=== PATIENT | male | born 1955 | race Caucasian/White ===

== ENCOUNTER 2017-05-22 13:13 | Inpatient (IN) | payer OTHER ==
[~2017-05-22] VITALS: Ht 165.1 cm; Wt 72.6 kg
[2017-05-22] MEDS ORDERED: IV NORMAL SALINE 500 ML BAG IV ONE (13:30)
[2017-05-22 14:00] LABS: CREATININE 6.4 mg/dL (0.6-1.3)
[2017-05-22 14:02] LABS: BASOPHILS # (AUTO) 0.1 K/uL (0.0-8.0); BASOPHILS % (AUTO) 0.6 % (0.0-2.0); EOSINOPHILS # (AUTO) 0.6 K/uL (0.0-0.7); EOSINOPHILS % (AUTO) 5.3 % (0.0-7.0); HEMATOCRIT 23.6 % (36.7-47.1); LYMPHOCYTES # (AUTO) 2.2 K/uL (20.0-40.0); LYMPHOCYTES % (AUTO) 20.4 % (20.5-51.5); MEAN CORPUSCULAR HEMOGLOBIN 30.3 uug (23.8-33.4); MEAN CORPUSCULAR HGB CONC 34 g/dL (32.5-36.3); MEAN CORPUSCULAR VOLUME 89.3 fL (73.0-96.2); MONOCYTES # (AUTO) 1.1 K/uL (2.0-10.0); NEUTROPHILS % (AUTO) 63.7 % (38.5-71.5); PLATELET COUNT (AUTO) 302 K/uL (152-348); RED BLOOD CELL COUNT(AUTO) 2.64 MIL/uL (4.06-5.63); WHITE BLOOD COUNT (AUTO) 10.9 K/uL (3.6-10.2)
[2017-05-22 14:17] LABS: BILIRUBIN,DIRECT 0.1 mg/dL (0.0-0.2); BILIRUBIN,TOTAL 0.2 mg/dL (0.2-1.0); TOTAL PROTEIN, SERUM 7.5 g/dL (6.4-8.2)
[2017-05-22] MEDS ORDERED: HYDR-3980 PO (14:21)
[2017-05-22] MEDS ORDERED: ATOR40TA PO (14:21)
[2017-05-22] MEDS ORDERED: CALC667C6 PO (14:21)
[2017-05-22] MEDS ORDERED: CARV12.52 PO (14:21)
[2017-05-22] MEDS ORDERED: INSU100I26 SQ (14:21)
[2017-05-22] MEDS ORDERED: AMLO10TA2 PO (14:21)
[2017-05-22] MEDS ORDERED: CLOP75TA33 PO (14:21)
[2017-05-22] MEDS ORDERED: DICY10CA13 PO (14:21)
[2017-05-22] MEDS ORDERED: BLOO-140 IN (14:21)
[2017-05-22] MEDS ORDERED: LORA1TAB PO (14:21)
[2017-05-22] MEDS ORDERED: ISOS30TA6 PO (14:21)
[2017-05-22 16:12] VITALS: BP 139/67
[2017-05-22] MEDS ORDERED: DEXTROSE 50% 50 ML DISP.SYRIN IV PRN (17:30)
[2017-05-22] MEDS ORDERED: DICYCLOMINE HCL 10 MG CAPSULE PO PRN (17:30)
[2017-05-22] MEDS ORDERED: BLOOD SUGAR DIAGNOSTIC 1 EACH STRIP VI SCH (18:00)
[2017-05-22] MEDS: BLOOD SUGAR DIAGNOSTIC 1 EACH STRIP VI SCH (18:25)
[2017-05-22 19:12] LABS: *BILIRUBIN,URIN NEGATIVE (NEGATIVE); *BLOOD, URINE 2+ (NEGATIVE); *CLARITY,URINE TURBID (CLEAR); *COLOR,URINE YELLOW (YELLOW); *KETONES,URINE NEGATIVE (NEGATIVE); *UROBILINOGEN,URINE 0.2 E.U./dl (NORMAL); LEUKOCYTE ESTERASE ,URINE NEGATIVE (NEGATIVE); NITRITE, URINE NEGATIVE (NEGATIVE); PH,URINE 5.5 (5.0-8.0); UGLUCOSE TRACE (NEGATIVE)
[2017-05-22 19:36] LABS: *CREATININE,URINE 238.1 mg/dL (30-125)
[2017-05-22 19:41] LABS: *PROTEIN,URINE 3+ (NEGATIVE)
[2017-05-22 19:46] LABS: SQUAMOUS EPITHELIAL CELL,UR FEW /HPF (NONE SEEN); URINE AMORPHOUS URATE MANY /HPF
[2017-05-22 19:47] LABS: MUCUS,URINE MODERATE /LPF (0-FEW)
[2017-05-22 20:39] VITALS: BP 102/64
[2017-05-22] MEDS: ATORVASTATIN 40 MG TABLET PO SCH (20:48)
[2017-05-22] MEDS: LORAZEPAM 1 MG TABLET PO PRN (20:51)
[2017-05-22] MEDS ORDERED: INSULIN GLARGINE,HUM 300 UNITS/3 ML CARTRIDGE SQ SCH (21:00)
[2017-05-22] MEDS: INSULIN DETEMIR 300 UNIT/3 ML CARTRIDGE SQ SCH (21:59)
[2017-05-23] MEDS: HYDROCODONE/APAP 10-325 MG TABLET PO PRN (00:36)
[2017-05-23 04:00] VITALS: BP 134/88
[2017-05-23 07:09] LABS: BILIRUBIN,TOTAL 0.1 mg/dL (0.2-1.0); CREATININE 6.4 mg/dL (0.6-1.3); MAGNESIUM 1.4 mg/dL (1.8-2.4); PHOSPHOROUS 4.1 mg/dL (2.5-4.9); POTASSIUM 5.1 mmol/L (3.5-5.1); TOTAL PROTEIN, SERUM 6.8 g/dL (6.4-8.2)
[2017-05-23] MEDS: BLOOD SUGAR DIAGNOSTIC 1 EACH STRIP VI SCH ×3 (07:52→17:11)
[2017-05-23] MEDS: CALCIUM ACETATE 667 MG CAPSULE PO SCH ×2 (09:00→17:07)
[2017-05-23] MEDS: ISOSORBIDE MONONITRATE 30 MG TAB.SR.24H PO SCH (09:00)
[2017-05-23] MEDS: CLOPIDOGREL 75 MG TABLET PO SCH (09:00)
[2017-05-23] MEDS: CARVEDILOL 12.5 MG TABLET PO SCH ×2 (09:00→17:11)
[2017-05-23] MEDS ORDERED: AMLODIPINE 10 MG TABLET PO SCH (09:00)
[2017-05-23] MEDS: IV NS 1000 ML 1,000 ML IV PRN (09:27)
[2017-05-23] MEDS ORDERED: MAGNESIUM SULFATE/D5W 100 ML IV SCH (10:00)
[2017-05-23 11:32] VITALS: BP 141/80
[2017-05-23] MEDS: INSULIN REGULAR, HUMAN 300 UNIT/3 ML VIAL SQ PRN (12:34)
[2017-05-23 15:25] VITALS: BP 123/75
[2017-05-23 20:00] VITALS: BP 153/86
[2017-05-23] MEDS: ATORVASTATIN 40 MG TABLET PO SCH (20:33)
[2017-05-23] MEDS: INSULIN DETEMIR 300 UNIT/3 ML CARTRIDGE SQ SCH (20:35)
[2017-05-23] MEDS: LORAZEPAM 1 MG TABLET PO PRN (20:37)
[2017-05-24] VITALS (12 sets, daily range): BP systolic 122–157; BP diastolic 55–102
[2017-05-24] MEDS: PANTOPRAZOLE SODIUM 40 MG TABLET.DR PO SCH (06:10)
[2017-05-24 06:41] LABS: BILIRUBIN,TOTAL 0.2 mg/dL (0.2-1.0); CREATININE 6.1 mg/dL (0.6-1.3); MAGNESIUM 1.9 mg/dL (1.8-2.4); PHOSPHOROUS 4.1 mg/dL (2.5-4.9); POTASSIUM 4.3 mmol/L (3.5-5.1); TOTAL PROTEIN, SERUM 6.6 g/dL (6.4-8.2)
[2017-05-24 07:00] LABS: BASOPHILS % (AUTO) 0.4 % (0.0-2.0); EOSINOPHILS # (AUTO) 0.6 K/uL (0.0-0.7); EOSINOPHILS % (AUTO) 5.4 % (0.0-7.0); LYMPHOCYTES # (AUTO) 2.4 K/uL (20.0-40.0); LYMPHOCYTES % (AUTO) 23.7 % (20.5-51.5); MEAN CORPUSCULAR HGB CONC 35 g/dL (32.5-36.3); MEAN CORPUSCULAR VOLUME 88.9 fL (73.0-96.2); MONOCYTES % (AUTO) 9.5 % (0.0-11.0); NEUTROPHILS # (AUTO) 6.2 K/uL (1.8-8.9); PLATELET COUNT (AUTO) 291 K/uL (152-348); WHITE BLOOD COUNT (AUTO) 10.1 K/uL (3.6-10.2)
[2017-05-24 07:27] LABS: RED BLOOD CELL COUNT(AUTO) 2.35 MIL/uL (4.06-5.63)
[2017-05-24 07:29] LABS: HEMOGLOBIN 7.3 g/dL (12.5-16.3)
[2017-05-24 07:30] LABS: HEMATOCRIT 20.9 % (36.7-47.1)
[2017-05-24] MEDS ORDERED: EPOETIN ALFA 20,000 UNIT/ML ML SQ ONE (09:22)
[2017-05-24] MEDS: CALCIUM ACETATE 667 MG CAPSULE PO SCH ×2 (09:42→17:00)
[2017-05-24] MEDS: CLOPIDOGREL 75 MG TABLET PO SCH (09:42)
[2017-05-24] MEDS: ISOSORBIDE MONONITRATE 30 MG TAB.SR.24H PO SCH (09:43)
[2017-05-24] MEDS: CARVEDILOL 12.5 MG TABLET PO SCH ×2 (09:43→18:08)
[2017-05-24] MEDS: BLOOD SUGAR DIAGNOSTIC 1 EACH STRIP VI SCH ×3 (09:44→18:06)
[2017-05-24 11:07] LABS: A/G RATIO 0.7 (0.7-1.7); ALBUMIN 2.6 g/dL (2.9-4.4); ALPHA-1-GLOBULIN 0.3 g/dL (0.0-0.4); BETA GLOBULIN 0.9 g/dL (0.7-1.3); GAMMA GLOBULIN 1.2 g/dL (0.4-1.8); GLOBULIN, TOTAL 3.5 g/dL (2.2-3.9); M-SPIKE Not Observed g/dL (Not Observed)
[2017-05-24 17:06] LABS: *ANTI-SCLERODERMA-70 AB <0.2 AI (0.0-0.9); *SJOGREN'S ANTI-SS-A <0.2 AI (0.0-0.9); *SJOGREN'S ANTI-SS-B <0.2 AI (0.0-0.9); *SMITH ANTIBODIES <0.2 AI (0.0-0.9); ANTI-DNA(DS) AB, QN 1 IU/mL (0-9)
[2017-05-24] MEDS: ATORVASTATIN 40 MG TABLET PO SCH (21:15)
[2017-05-24] MEDS: LORAZEPAM 1 MG TABLET PO PRN (21:15)
[2017-05-24] MEDS: INSULIN DETEMIR 300 UNIT/3 ML CARTRIDGE SQ SCH (21:16)
[2017-05-25] VITALS (9 sets, daily range): BP systolic 116–170; BP diastolic 58–91
[2017-05-25] MEDS: IV NS 1000 ML 1,000 ML IV PRN ×2 (01:42→11:51)
[2017-05-25] MEDS: LORAZEPAM 1 MG TABLET PO PRN (05:05)
[2017-05-25 05:56] LABS: BASOPHILS % (AUTO) 0.4 % (0.0-2.0); EOSINOPHILS # (AUTO) 0.6 K/uL (0.0-0.7); EOSINOPHILS % (AUTO) 6.1 % (0.0-7.0); HEMATOCRIT 26.9 % (40-50); HEMOGLOBIN 9.1 G/DL (14.0-18.0); LYMPHOCYTES # (AUTO) 2.6 K/UL (0.8-4.8); LYMPHOCYTES % (AUTO) 24.6 % (20.5-51.5); MEAN CORPUSCULAR HEMOGLOBIN 30.1 UUG (27.0-31.0); MEAN CORPUSCULAR HGB CONC 34 g/dL (32.0-37.0); MEAN CORPUSCULAR VOLUME 89.4 FL (82.0-92.0); MONOCYTES # (AUTO) 1.2 K/UL (0.1-1.30); MONOCYTES % (AUTO) 11.3 % (0.0-11.0); NEUTROPHILS % (AUTO) 57.6 % (38.5-71.5); PLATELET COUNT (AUTO) 330 K/UL (150-450); RED BLOOD CELL COUNT(AUTO) 3.01 MIL/UL (4.7-6.1); WHITE BLOOD COUNT (AUTO) 10.4 K/UL (4.0-11.2)
[2017-05-25 06:09] LABS: BILIRUBIN,TOTAL 0.6 mg/dL (0.2-1.0); CREATININE 5.7 mg/dL (0.6-1.3); MAGNESIUM 1.6 mg/dL (1.8-2.4); PHOSPHOROUS 3.6 mg/dL (2.5-4.9); POTASSIUM 4.1 mmol/L (3.5-5.1); TOTAL PROTEIN, SERUM 6.6 g/dL (6.4-8.2)
[2017-05-25 06:19] LABS: IRON, SERUM 138 ug/dL (50-175)
[2017-05-25] MEDS: PANTOPRAZOLE SODIUM 40 MG TABLET.DR PO SCH (06:23)
[2017-05-25] MEDS: BLOOD SUGAR DIAGNOSTIC 1 EACH STRIP VI SCH ×3 (06:32→16:58)
[2017-05-25] MEDS: CARVEDILOL 12.5 MG TABLET PO SCH ×2 (09:23→17:25)
[2017-05-25] MEDS: CALCIUM ACETATE 667 MG CAPSULE PO SCH ×2 (09:24→17:25)
[2017-05-25] MEDS: ISOSORBIDE MONONITRATE 30 MG TAB.SR.24H PO SCH (09:24)
[2017-05-25] MEDS: CLOPIDOGREL 75 MG TABLET PO SCH (09:24)
[2017-05-25] MEDS: INSULIN REGULAR, HUMAN 300 UNIT/3 ML VIAL SQ PRN (17:50)
[2017-05-25] MEDS: INSULIN DETEMIR 300 UNIT/3 ML CARTRIDGE SQ SCH (20:29)
[2017-05-25] MEDS: ATORVASTATIN 40 MG TABLET PO SCH (20:29)
[2017-05-26 00:20] VITALS: BP 132/72
[2017-05-26] MEDS: IV NS 1000 ML 1,000 ML IV PRN ×2 (03:43→13:43)
[2017-05-26] MEDS: LORAZEPAM 1 MG TABLET PO PRN ×2 (03:54→15:35)
[2017-05-26 04:00] VITALS: BP 130/63
[2017-05-26] MEDS: PANTOPRAZOLE SODIUM 40 MG TABLET.DR PO SCH (06:19)
[2017-05-26] MEDS: BLOOD SUGAR DIAGNOSTIC 1 EACH STRIP VI SCH ×4 (07:07→17:44)
[2017-05-26 07:51] LABS: BASOPHILS # (AUTO) 0.1 K/uL (0.0-8.0); BASOPHILS % (AUTO) 0.5 % (0.0-2.0); EOSINOPHILS # (AUTO) 0.6 K/uL (0.0-0.7); EOSINOPHILS % (AUTO) 3.9 % (0.0-7.0); LYMPHOCYTES # (AUTO) 2.8 K/uL (20.0-40.0); LYMPHOCYTES % (AUTO) 19.1 % (20.5-51.5); MEAN CORPUSCULAR HEMOGLOBIN 30.3 uug (23.8-33.4); MEAN CORPUSCULAR HGB CONC 34 g/dL (32.5-36.3); MEAN CORPUSCULAR VOLUME 89.4 fL (73.0-96.2); MONOCYTES # (AUTO) 1.5 K/uL (2.0-10.0); NEUTROPHILS # (AUTO) 9.7 K/uL (1.8-8.9); NEUTROPHILS % (AUTO) 66.5 % (38.5-71.5); PLATELET COUNT (AUTO) 290 K/uL (152-348); RED BLOOD CELL COUNT(AUTO) 2.89 MIL/uL (4.06-5.63)
[2017-05-26 07:57] LABS: MAGNESIUM 1.3 mg/dL (1.8-2.4); PHOSPHOROUS 3.2 mg/dL (2.5-4.9); POTASSIUM 3.9 mmol/L (3.5-5.1)
[2017-05-26 08:00] VITALS: BP 145/86
[2017-05-26 08:04] LABS: HEMATOCRIT 25.8 % (36.7-47.1); HEMOGLOBIN 8.7 g/dL (12.5-16.3); WHITE BLOOD COUNT (AUTO) 14.6 K/uL (3.6-10.2)
[2017-05-26] MEDS: CARVEDILOL 12.5 MG TABLET PO SCH ×2 (09:40→17:44)
[2017-05-26] MEDS: AMLODIPINE 10 MG TABLET PO SCH (09:40)
[2017-05-26] MEDS: ISOSORBIDE MONONITRATE 30 MG TAB.SR.24H PO SCH (09:41)
[2017-05-26] MEDS: CALCIUM ACETATE 667 MG CAPSULE PO SCH ×2 (09:41→17:44)
[2017-05-26] MEDS: CLOPIDOGREL 75 MG TABLET PO SCH (09:44)
[2017-05-26 11:20] VITALS: BP 145/86
[2017-05-26] MEDS: INSULIN REGULAR, HUMAN 300 UNIT/3 ML VIAL SQ PRN ×2 (12:43→17:37)
[2017-05-26] MEDS ORDERED: MAGNESIUM SULFATE/D5W 100 ML IV SCH (14:45)
[2017-05-26 15:25] VITALS: BP 130/70
[2017-05-26] MEDS: MAGNESIUM SULFATE/D5W 100 ML IV SCH ×2 (15:30→16:45)
[2017-05-26 20:00] VITALS: BP 143/82
[2017-05-26 20:32] LABS: *OCCULT BLOOD STOOL NEGATIVE (NEGATIVE)
[2017-05-26] MEDS: ATORVASTATIN 40 MG TABLET PO SCH (20:54)
[2017-05-26] MEDS: INSULIN DETEMIR 300 UNIT/3 ML CARTRIDGE SQ SCH (21:10)
[2017-05-27] MEDS: LORAZEPAM 1 MG TABLET PO PRN (01:20)
[2017-05-27] MEDS: HYDROCODONE/APAP 10-325 MG TABLET PO PRN ×2 (01:54→14:08)
[2017-05-27 04:47] VITALS: BP 125/64
[2017-05-27] MEDS: PANTOPRAZOLE SODIUM 40 MG TABLET.DR PO SCH (06:22)
[2017-05-27 07:02] LABS: BASOPHILS # (AUTO) 0.1 K/uL (0.0-8.0); BASOPHILS % (AUTO) 0.4 % (0.0-2.0); EOSINOPHILS # (AUTO) 0.5 K/uL (0.0-0.7); EOSINOPHILS % (AUTO) 2.8 % (0.0-7.0); HEMATOCRIT 25.1 % (40-50); HEMOGLOBIN 8.6 G/DL (14.0-18.0); LYMPHOCYTES # (AUTO) 2.9 K/UL (0.8-4.8); LYMPHOCYTES % (AUTO) 15.9 % (20.5-51.5); MEAN CORPUSCULAR HEMOGLOBIN 30.4 UUG (27.0-31.0); MEAN CORPUSCULAR HGB CONC 34 g/dL (32.0-37.0); MEAN CORPUSCULAR VOLUME 88.8 FL (82.0-92.0); MONOCYTES # (AUTO) 1.7 K/UL (0.1-1.30); MONOCYTES % (AUTO) 9.4 % (0.0-11.0); NEUTROPHILS # (AUTO) 13.1 K/UL (1.8-8.9); NEUTROPHILS % (AUTO) 71.5 % (38.5-71.5); PLATELET COUNT (AUTO) 301 K/UL (150-450); RED BLOOD CELL COUNT(AUTO) 2.83 MIL/UL (4.7-6.1); WHITE BLOOD COUNT (AUTO) 18.3 K/UL (4.0-11.2)
[2017-05-27] MEDS: BLOOD SUGAR DIAGNOSTIC 1 EACH STRIP VI SCH ×3 (07:15→17:12)
[2017-05-27 07:20] LABS: CREATININE 5.1 mg/dL (0.6-1.3); MAGNESIUM 1.8 mg/dL (1.8-2.4); PHOSPHOROUS 2.8 mg/dL (2.5-4.9); POTASSIUM 4.1 mmol/L (3.5-5.1)
[2017-05-27] MEDS: IV NS 1000 ML 1,000 ML IV PRN (08:00)
[2017-05-27] MEDS: CALCIUM ACETATE 667 MG CAPSULE PO SCH ×2 (08:47→16:33)
[2017-05-27] MEDS: CARVEDILOL 12.5 MG TABLET PO SCH ×2 (08:48→17:13)
[2017-05-27] MEDS: AMLODIPINE 10 MG TABLET PO SCH (08:48)
[2017-05-27] MEDS: ISOSORBIDE MONONITRATE 30 MG TAB.SR.24H PO SCH (08:48)
[2017-05-27] MEDS: CLOPIDOGREL 75 MG TABLET PO SCH (08:49)
[2017-05-27] MEDS ORDERED: ONDANSETRON 4 MG/2 ML VIAL IV PRN (11:15)
[2017-05-27 11:35] VITALS: BP 129/79
[2017-05-27 15:31] VITALS: BP 148/85
[2017-05-27 17:13] VITALS: BP 140/63
[2017-05-28 06:06] LABS: *PEU ALBUMIN, UR 51.8 % (.); *PEU ALPHA-2-GLOBULIN, UR 12.6 % (.); *PEU PROTEIN, TOTAL, UR 643.2 mg/dL (Not Estab.); *PEUALPHA-1-GLOBULIN, UR 3.2 % (.); *PEUBETA GLOBULIN, UR 12.4 % (.)
== END 2017-05-27 19:10 | DRG 698 ==
LOC: ER 13:13 → TELE 15:10 → MED 05-26 08:59 → TELE 05-26 09:03 → MED 05-26 16:14
PROVIDERS: ADMIT Internal Medicine; ATTEND Internal Medicine
PROC: 30233N1 Transfusion of Nonautologous Red Blood Cells into Peripheral Vein, Percutaneous Approach (ICD-10-PCS; principal; 2017-05-24)
DX: E11.21 Type 2 diabetes mellitus with diabetic nephropathy (principal); I21.A1 Myocardial infarction type 2; N17.9 Acute kidney failure, unspecified; E11.22 Type 2 diabetes mellitus with diabetic chronic kidney disease; I12.9 Hypertensive chronic kidney disease with stage 1 through stage 4 chronic kidney disease, or unspecified chronic kidney disease; N18.9 Chronic kidney disease, unspecified; Z79.4 Long term (current) use of insulin; Z79.899 Other long term (current) drug therapy; H54.8 Legal blindness, as defined in USA; E11.319 Type 2 diabetes mellitus with unspecified diabetic retinopathy without macular edema; E78.5 Hyperlipidemia, unspecified; R80.9 Proteinuria, unspecified; R26.9 Unspecified abnormalities of gait and mobility; E83.42 Hypomagnesemia; Z87.891 Personal history of nicotine dependence; D64.9 Anemia, unspecified; R60.0 Localized edema
CPT/HCPCS: 36415; 70030-TC; 71010; 76775; 83520; 83550; 83605; 83690; 83735; 84100; 84155; 84165; 84166; 84300; 85025; 85730; 86038; 86256; 86850; 86900; 86901; 86920; 87040; 87077; 87086; 93005; 93307; 97110; 97116; 97530; A4663; J0885; J1815; J2405; J3475; J7030; J7040; J7050; P9016-BL; P9021

== ENCOUNTER 2017-06-01 23:50 | Inpatient (IN) | payer MEDICAID, OTHER ==
[~2017-06-01] VITALS: Ht 172.7 cm; Wt 79.4 kg
[~2017-06-01 23:50] MED LIST: AMLO10TA2 PO; ATOR40TA PO; BLOO-140 IN; CALC667C6 PO; CARV12.52 PO; CLOP75TA33 PO; DICY10CA13 PO; HYDR-3980 PO; INSU100I26 SQ; ISOS30TA6 PO; LORA1TAB PO
--- NOTE | 2017-06-02 00:15 | NUR ---
UNABLE TO DO EYE EXAM, PATIENT IS CONFUSED AND DISORIENTED, UNABLE TO FOLLOW COMMANDS.
--- NOTE | 2017-06-02 00:43 | NUR ---
DR. HARDING AT BEDSIDE FOR MSE.
--- NOTE | 2017-06-02 00:51 | NUR ---
Call placed to [facility] Nephrology, Dr. Schwartz will be paged.
--- NOTE | 2017-06-02 01:05 | NUR ---
KATHY spoke to Dr. Schwartz
[2017-06-02 01:38] LABS: BASOPHILS # (AUTO) 0.1 K/uL (0.0-8.0); BASOPHILS % (AUTO) 0.7 % (0.0-2.0); EOSINOPHILS # (AUTO) 0.4 K/uL (0.0-0.7); EOSINOPHILS % (AUTO) 2.1 % (0.0-7.0); HEMATOCRIT 27.6 % (36.7-47.1); HEMOGLOBIN 9.1 g/dL (12.5-16.3); LYMPHOCYTES # (AUTO) 2.8 K/uL (20.0-40.0); LYMPHOCYTES % (AUTO) 13.7 % (20.5-51.5); MEAN CORPUSCULAR HEMOGLOBIN 29.5 uug (23.8-33.4); MEAN CORPUSCULAR HGB CONC 33 g/dL (32.5-36.3); MEAN CORPUSCULAR VOLUME 89.5 fL (73.0-96.2); MONOCYTES # (AUTO) 1.7 K/uL (2.0-10.0); MONOCYTES % (AUTO) 8.4 % (0.0-11.0); NEUTROPHILS # (AUTO) 15.2 K/uL (1.8-8.9); NEUTROPHILS % (AUTO) 75.1 % (38.5-71.5); PLATELET COUNT (AUTO) 446 K/uL (152-348); RED BLOOD CELL COUNT(AUTO) 3.09 MIL/uL (4.06-5.63); WHITE BLOOD COUNT (AUTO) 20.2 K/uL (3.6-10.2)
[2017-06-02 02:04] LABS: BILIRUBIN,DIRECT 0.1 mg/dL (0.0-0.2); BILIRUBIN,TOTAL 0.3 mg/dL (0.2-1.0); CREATININE 5.9 mg/dL (0.6-1.3); POTASSIUM 4.5 mmol/L (3.5-5.1); TOTAL PROTEIN, SERUM 7.1 g/dL (6.4-8.2)
[2017-06-02] MEDS ORDERED: LORAZEPAM 2 MG/1 ML VIAL IV ONE ×2 (02:30→03:00)
[2017-06-02] MEDS ORDERED: LORAZEPAM 2 MG/1 ML VIAL ONE (02:59)
--- NOTE | 2017-06-02 03:30 | NUR ---
IN AND OUT CATH DONE PER ORDER, 200ML CLOUDY URINE OUT. SPECIMEN SENT.
[2017-06-02 03:40] LABS: *BILIRUBIN,URIN NEGATIVE (NEGATIVE); *BLOOD, URINE 2+ (NEGATIVE); *CLARITY,URINE CLOUDY (CLEAR); *COLOR,URINE YELLOW (YELLOW); *KETONES,URINE TRACE (NEGATIVE); *UROBILINOGEN,URINE 0.2 E.U./dl (NORMAL); LEUKOCYTE ESTERASE ,URINE 1+ (NEGATIVE); NITRITE, URINE POSITIVE (NEGATIVE); PH,URINE 5.5 (5.0-8.0); UGLUCOSE TRACE (NEGATIVE)
[2017-06-02 04:02] LABS: *PROTEIN,URINE 3+ (NEGATIVE)
[2017-06-02 04:03] LABS: BACTERIA,URINE MANY /HPF (NONE SEEN); WBC,URINE TNTC /HPF (0-3)
[2017-06-02 04:04] LABS: SQUAMOUS EPITHELIAL CELL,UR MODERATE /HPF (NONE SEEN)
[2017-06-02] MEDS ORDERED: ISOSORBIDE PO (04:29)
[2017-06-02] MEDS ORDERED: CALC667T5 PO (04:29)
[2017-06-02] MEDS ORDERED: INSU100V11 (04:29)
[2017-06-02] MEDS ORDERED: INSU100V7 SQ (04:29)
[2017-06-02] MEDS ORDERED: CEFTRIAXONE 1 G in IV DEXTROSE 5% 50 ML IV ONE (05:00)
[2017-06-02] MEDS ORDERED: PIPERACILLIN SODIUM/TAZOBACTAM 2.25 G in IV DEXTROSE 5% 50 ML IV ONE (05:00)
[2017-06-02] MEDS ORDERED: ASPIRIN 300 MG RECTAL SUPP RC ONE ×2 (05:00→05:16)
[2017-06-02] MEDS ORDERED: PIPERACILLIN/TAZO 2.25 GM VIAL ONE (05:18)
[2017-06-02] MEDS ORDERED: CEFTRIAXONE 1 G VIAL ONE (05:46)
--- NOTE | 2017-06-02 06:06 | NUR ---
Pt. admitted to TELE , under care of Dr. JACOB Belongs List completed.
[2017-06-02 07:04] VITALS: BP 143/71
--- NOTE | 2017-06-02 07:30 | NUR ---
asleep on rounds but arouses easily, tele SR70's, repositioned and kept clean and dry, safety measures initiated, admission care done, pt confused, oriented to self only, bed alarm on
--- NOTE | 2017-06-02 09:00 | NUR ---
blood sugar test done- 89
[2017-06-02] MEDS ORDERED: IV NS 1000 ML 1,000 ML IV ONE (09:30)
--- NOTE | 2017-06-02 10:00 | NUR ---
Patient in bed, awake and verbally responsive, with periods of forgetfulness and confusion, not in distress. Isolation precautions observed. Safety measure initiated. Dr Schwartz seen patient, made new orders noted and carried out.
[2017-06-02] MEDS ORDERED: ISOSORBIDE 30 MG PO SCH (11:15)
[2017-06-02] MEDS ORDERED: HYDROCODONE/APAP 10-325 MG TABLET PO PRN (11:15)
[2017-06-02] MEDS ORDERED: DICYCLOMINE HCL 10 MG CAPSULE PO PRN (11:15)
--- NOTE | 2017-06-02 11:15 | NUR ---
seen by Dr Jean, reminded pt of urine needed for lab, offered urinal
[2017-06-02] MEDS ORDERED: ISOS30TA6 PO (11:20)
[2017-06-02] MEDS ORDERED: ISOSORBIDE MONONITRATE 30 MG TAB.SR.24H PO SCH (11:30)
[2017-06-02 11:37] VITALS: BP 149/76
[2017-06-02] MEDS ORDERED: DEXTROSE 50% 50 ML DISP.SYRIN IV PRN (11:45)
[2017-06-02 12:15] VITALS: BP 159/84
[2017-06-02] MEDS: CARVEDILOL 12.5 MG TABLET PO SCH ×2 (12:36→17:14)
[2017-06-02] MEDS: CLOPIDOGREL 75 MG TABLET PO SCH (12:37)
[2017-06-02] MEDS: AMLODIPINE 10 MG TABLET PO SCH (12:37)
[2017-06-02] MEDS: CALCIUM ACETATE 667 MG CAPSULE PO SCH ×2 (12:39→17:15)
[2017-06-02 14:03] LABS: *CREATININE,URINE 132.7 mg/dL (30-125)
[2017-06-02 14:50] LABS: *URINE TOTAL PROTEIN RANDOM 861.1 mg/dL (<150/24HR)
[2017-06-02 15:35] VITALS: BP 178/91
[2017-06-02] MEDS: BLOOD SUGAR DIAGNOSTIC 1 EACH STRIP VI SCH (17:02)
[2017-06-02] MEDS: INSULIN REGULAR, HUMAN 300 UNIT/3 ML VIAL SQ PRN (17:09)
--- NOTE | 2017-06-02 18:50 | NUR ---
Patient is in bed, sleeping comfortably, not in any form of distress, Patient was incontinent twice during the shift, kept clean and dry, isolations precautions observed, safety measures provided.
--- NOTE | 2017-06-02 19:30 | NUR ---
Received patient laying in bed. Sleeping in the moment. No acute distress noted. HOB elevated. Tele SR. Safety initiated. Call light within reach. Will continue to monitor.
[2017-06-02 20:11] VITALS: BP 137/80
[2017-06-02] MEDS: ATORVASTATIN 40 MG TABLET PO SCH (20:34)
[2017-06-02] MEDS: MEROPENEM 250 MG in IV NORMAL SALINE 50 ML IV SCH (20:35)
[2017-06-03 01:44] VITALS: BP 160/71
[2017-06-03 05:01] VITALS: BP 179/87
--- NOTE | 2017-06-03 06:07 | NUR ---
No changes t/o shift. Slept t/o shift. Patient A&O x 2. No acute distress noted. Patient is able to respond appropriately to questions but forgetful. Tele SR. Patient urinating well. Turn and repositioned Q2H. Safety and comfort measures maintained t/o shift. All meds given as ordered. All needs met.
[2017-06-03 06:20] LABS: BASOPHILS # (AUTO) 0.1 K/uL (0.0-8.0); BASOPHILS % (AUTO) 0.6 % (0.0-2.0); EOSINOPHILS # (AUTO) 0.8 K/uL (0.0-0.7); EOSINOPHILS % (AUTO) 4.7 % (0.0-7.0); HEMATOCRIT 27.1 % (36.7-47.1); HEMOGLOBIN 8.9 g/dL (12.5-16.3); LYMPHOCYTES # (AUTO) 2.3 K/uL (20.0-40.0); LYMPHOCYTES % (AUTO) 13.6 % (20.5-51.5); MEAN CORPUSCULAR HEMOGLOBIN 29.4 uug (23.8-33.4); MEAN CORPUSCULAR HGB CONC 33 g/dL (32.5-36.3); MEAN CORPUSCULAR VOLUME 89.5 fL (73.0-96.2); MONOCYTES # (AUTO) 1.5 K/uL (2.0-10.0); MONOCYTES % (AUTO) 8.9 % (0.0-11.0); NEUTROPHILS # (AUTO) 12.2 K/uL (1.8-8.9); NEUTROPHILS % (AUTO) 72.2 % (38.5-71.5); PLATELET COUNT (AUTO) 438 K/uL (152-348); RED BLOOD CELL COUNT(AUTO) 3.03 MIL/uL (4.06-5.63); WHITE BLOOD COUNT (AUTO) 16.9 K/uL (3.6-10.2)
[2017-06-03] MEDS: BLOOD SUGAR DIAGNOSTIC 1 EACH STRIP VI SCH ×3 (06:39→16:22)
[2017-06-03 06:45] VITALS: BP 158/84
--- NOTE | 2017-06-03 06:46 | NUR ---
Patient's BP tends to run high. Give him a few minutes to relax. Re-check his BP, stable and WNL. Tele SR. Will continue to monitor.
[2017-06-03 07:06] LABS: CREATININE 5.4 mg/dL (0.6-1.3); MAGNESIUM 1.9 mg/dL (1.8-2.4); PHOSPHOROUS 3.5 mg/dL (2.5-4.9); POTASSIUM 4.5 mmol/L (3.5-5.1)
[2017-06-03] MEDS: INSULIN REGULAR, HUMAN 300 UNIT/3 ML VIAL SQ PRN ×2 (07:34→11:09)
[2017-06-03] MEDS: ISOSORBIDE MONONITRATE 30 MG TAB.SR.24H PO SCH (08:08)
[2017-06-03] MEDS: AMLODIPINE 10 MG TABLET PO SCH (08:08)
[2017-06-03] MEDS: CARVEDILOL 12.5 MG TABLET PO SCH ×2 (08:08→16:51)
[2017-06-03] MEDS: ASPIRIN EC 81 MG TABLET.DR PO SCH (08:08)
[2017-06-03] MEDS: CALCIUM ACETATE 667 MG CAPSULE PO SCH ×2 (08:08→17:04)
[2017-06-03] MEDS: CLOPIDOGREL 75 MG TABLET PO SCH (08:08)
[2017-06-03] MEDS: MEROPENEM 250 MG in IV NORMAL SALINE 50 ML IV SCH ×2 (08:18→21:15)
[2017-06-03] MEDS ORDERED: VANCOMYCIN IV 1 G in PREMIXED 0 EACH IV ONE (11:00)
[2017-06-03 11:07] VITALS: BP 137/79
[2017-06-03 11:08] LABS: HEPATITIS A AB, TOTAL Positive (Negative); HEPATITIS B SURFACE AB Non Reactive (.); HEPATITIS B SURFACE AG Negative (Negative)
--- NOTE | 2017-06-03 11:15 | NUR ---
PT SEEN BY DR LEYVA
[2017-06-03] MEDS: LORAZEPAM 1 MG TABLET PO PRN (12:32)
[2017-06-03 15:01] VITALS: BP 138/77
--- NOTE | 2017-06-03 19:30 | NUR ---
Received patient laying comfortably in bed. No acute distress noted. Patient is alert and oriented x 2. Tele SR. Able to state needs. Bed bound but able to turn and reposition self. Safety initiated. Call light within reach. Will continue to monitor.
--- NOTE | 2017-06-03 19:49 | NUR ---
CLINICAL PHARMACY NOTE:VANCOMYCIN DOSING Request for vancomycin dosing on 61 y/o male 5'8" 175 lbs for UTI Temp 98.4, BUN 71 Scr 5.4 WBC 16.9 urine culture Staph aureus. Patient also on Merrem recent admit ESBL E coli in urine Vancomycin 1gm ivpb given this am. Ordered a random vancomycin level 24 hours post dose. Will dose by levels
[2017-06-03 20:00] VITALS: BP 137/77
[2017-06-03] MEDS: MUPIROCIN 2% OINT 22 GM TUBE NS SCH (20:17)
[2017-06-03] MEDS: ATORVASTATIN 40 MG TABLET PO SCH (20:17)
[2017-06-03] MEDS ORDERED: MUPIROCIN 2% OINT 22 GM TUBE NS SCH (21:45)
[2017-06-04 00:10] VITALS: BP 132/76
[2017-06-04 04:00] VITALS: BP 130/84
--- NOTE | 2017-06-04 05:56 | NUR ---
No changes t/o shift. Slept intermittently t/o shift. No acute distress noted. Urinating well. Offered snacks at around midnight. Vital signs stable. Safety and comfort measures maintained t/o shift. All meds given as ordered. All needs met.
[2017-06-04] MEDS: BLOOD SUGAR DIAGNOSTIC 1 EACH STRIP VI SCH ×3 (06:31→17:35)
[2017-06-04 06:57] LABS: BASOPHILS % (AUTO) 0.3 % (0.0-2.0); EOSINOPHILS # (AUTO) 0.7 K/uL (0.0-0.7); EOSINOPHILS % (AUTO) 4.8 % (0.0-7.0); HEMATOCRIT 30.4 % (40-50); HEMOGLOBIN 9.8 G/DL (14.0-18.0); LYMPHOCYTES # (AUTO) 2.1 K/UL (0.8-4.8); LYMPHOCYTES % (AUTO) 14.5 % (20.5-51.5); MEAN CORPUSCULAR HEMOGLOBIN 29.3 UUG (27.0-31.0); MEAN CORPUSCULAR HGB CONC 32 g/dL (32.0-37.0); MEAN CORPUSCULAR VOLUME 91.1 FL (82.0-92.0); MONOCYTES # (AUTO) 1.1 K/UL (0.1-1.30); MONOCYTES % (AUTO) 7.7 % (0.0-11.0); NEUTROPHILS # (AUTO) 10.4 K/UL (1.8-8.9); NEUTROPHILS % (AUTO) 72.7 % (38.5-71.5); PLATELET COUNT (AUTO) 495 K/UL (150-450); RED BLOOD CELL COUNT(AUTO) 3.34 MIL/UL (4.7-6.1); WHITE BLOOD COUNT (AUTO) 14.3 K/UL (4.0-11.2)
[2017-06-04 07:25] LABS: BILIRUBIN,TOTAL 0.3 mg/dL (0.2-1.0); CREATININE 5.3 mg/dL (0.6-1.3); MAGNESIUM 1.8 mg/dL (1.8-2.4); PHOSPHOROUS 3.5 mg/dL (2.5-4.9); POTASSIUM 4.6 mmol/L (3.5-5.1); TOTAL PROTEIN, SERUM 6.8 g/dL (6.4-8.2)
--- NOTE | 2017-06-04 08:00 | NUR ---
Awake, oriented to name, confused, blind, able to verbalized needs. Repositioned comfortably in bed
[2017-06-04] MEDS: MEROPENEM 250 MG in IV NORMAL SALINE 50 ML IV SCH (09:17)
[2017-06-04] MEDS: CALCIUM ACETATE 667 MG CAPSULE PO SCH ×2 (09:17→17:36)
[2017-06-04] MEDS: MUPIROCIN 2% OINT 22 GM TUBE NS SCH ×2 (09:18→20:32)
[2017-06-04] MEDS: ASPIRIN EC 81 MG TABLET.DR PO SCH (09:18)
[2017-06-04] MEDS: CARVEDILOL 12.5 MG TABLET PO SCH ×2 (09:18→17:39)
[2017-06-04] MEDS: LORAZEPAM 1 MG TABLET PO PRN ×2 (09:19→17:38)
[2017-06-04] MEDS: ISOSORBIDE MONONITRATE 30 MG TAB.SR.24H PO SCH (09:19)
[2017-06-04] MEDS: CLOPIDOGREL 75 MG TABLET PO SCH (09:19)
[2017-06-04] MEDS: AMLODIPINE 10 MG TABLET PO SCH (09:19)
--- NOTE | 2017-06-04 09:20 | NUR ---
Agitated, easily angry, screaming, redirected. Ativan po given as ordered. Resting after
[2017-06-04 10:09] VITALS: BP 165/88
--- NOTE | 2017-06-04 11:00 | NUR ---
With BM to formed brown stool in moderate amount. Specimen sent to lab. Incontinence care with sponge bath given. Repositioned comfortably
[2017-06-04] MEDS ORDERED: VANCOMYCIN IV 1 G in PREMIXED 0 EACH IV ONE (12:00)
[2017-06-04] MEDS: INSULIN REGULAR, HUMAN 300 UNIT/3 ML VIAL SQ PRN ×2 (12:01→17:38)
--- NOTE | 2017-06-04 13:58 | NUR ---
CLINICAL PHARMACY NOTE: VANCOMYCIN PHARMACY TO DOSE Subjective: To continue vancomycin in this 61 y/o male for indication of UTI Objective: weight 175 LB height 68'' BUN 71 Scr 5.3 Wbc 14.3 temp 98.8 Vanco random level: 12.1 (with am labs- post vanco 1gm IVPB x1 yesterday at 1049) Assessment/Plan Will continue to dose by fall off level. Since vanco random level this am is 12.1 mcg/ml, will give vanco 1000gm IVPB x1 dose today at noon. Pharmacy shall check srcr in am (also check if any HD or not) & decide when to order next vanco random for further dosing. Will follow
[2017-06-04 15:00] VITALS: BP 133/86
[2017-06-04 16:00] VITALS: BP 133/86
--- NOTE | 2017-06-04 18:00 | NUR ---
Assisted with meal. Kept dry and comfortable
--- NOTE | 2017-06-04 19:30 | NUR ---
PT IN ROOM ALERT AWAKE WITH SOME CONFUSION. I&d MD STATED TO D/C CURRENT MERREM IV ATB. NO INCREASED LOSE BM NOTED AT THIS TIME. PT' NEEDS CONTINUOUS REMINDERS AND REORIENTATION. NO S/S OF ACUTE DISTRESS AT THIS TIME. BED ALARM ON WITH 3 SIDE RAILS RAISED. CONTINUE TO MONITOR. CONTINUE TO MONITOR.
[2017-06-04 20:00] VITALS: BP 130/63
[2017-06-04] MEDS: LACTOBACILLUS RHAMNOSUS GG 1 EACH CAPSULE PO SCH (20:32)
[2017-06-04] MEDS: ATORVASTATIN 40 MG TABLET PO SCH (20:32)
--- NOTE | 2017-06-05 01:00 | NUR ---
Pt in room asleep in no acute distress. Pt occasionally needs reorientation and redirecting. Denies any pain at this time. Continue to monitor.
[2017-06-05] MEDS: LORAZEPAM 1 MG TABLET PO PRN ×2 (03:43→20:10)
--- NOTE | 2017-06-05 05:00 | NUR ---
Pt in room in no acute distress. Pt noted with minor episodes of agitation. Pt tolerated recent Ativan medication. Continue to redirect and reorient pt. Denies any pain or discomfort at this time.
[2017-06-05 06:00] VITALS: BP 132/77
[2017-06-05 06:51] LABS: BILIRUBIN,TOTAL 0.3 mg/dL (0.2-1.0); CREATININE 5.1 mg/dL (0.6-1.3); MAGNESIUM 1.8 mg/dL (1.8-2.4); PHOSPHOROUS 3.6 mg/dL (2.5-4.9); POTASSIUM 4.8 mmol/L (3.5-5.1); TOTAL PROTEIN, SERUM 6.8 g/dL (6.4-8.2)
[2017-06-05 07:27] LABS: BASOPHILS % (AUTO) 0.3 % (0.0-2.0); EOSINOPHILS # (AUTO) 0.7 K/uL (0.0-0.7); EOSINOPHILS % (AUTO) 4.9 % (0.0-7.0); HEMATOCRIT 28.6 % (36.7-47.1); HEMOGLOBIN 9.4 g/dL (12.5-16.3); LYMPHOCYTES # (AUTO) 2.2 K/uL (20.0-40.0); MEAN CORPUSCULAR HEMOGLOBIN 29.3 uug (23.8-33.4); MEAN CORPUSCULAR HGB CONC 33 g/dL (32.5-36.3); MONOCYTES % (AUTO) 7.1 % (0.0-11.0); NEUTROPHILS # (AUTO) 9.9 K/uL (1.8-8.9); NEUTROPHILS % (AUTO) 71.7 % (38.5-71.5); PLATELET COUNT (AUTO) 451 K/uL (152-348); RED BLOOD CELL COUNT(AUTO) 3.21 MIL/uL (4.06-5.63); WHITE BLOOD COUNT (AUTO) 13.8 K/uL (3.6-10.2)
[2017-06-05] MEDS: BLOOD SUGAR DIAGNOSTIC 1 EACH STRIP VI SCH ×3 (07:46→17:09)
[2017-06-05] MEDS: AMLODIPINE 10 MG TABLET PO SCH (08:39)
[2017-06-05] MEDS: ASPIRIN EC 81 MG TABLET.DR PO SCH (08:39)
[2017-06-05] MEDS: ISOSORBIDE MONONITRATE 30 MG TAB.SR.24H PO SCH (08:39)
[2017-06-05] MEDS: CALCIUM ACETATE 667 MG CAPSULE PO SCH ×2 (08:39→17:04)
[2017-06-05] MEDS: LACTOBACILLUS RHAMNOSUS GG 1 EACH CAPSULE PO SCH ×2 (08:39→20:10)
[2017-06-05] MEDS: MUPIROCIN 2% OINT 22 GM TUBE NS SCH ×2 (08:40→20:10)
[2017-06-05] MEDS: CLOPIDOGREL 75 MG TABLET PO SCH (08:40)
[2017-06-05] MEDS: CARVEDILOL 12.5 MG TABLET PO SCH ×2 (08:40→17:04)
[2017-06-05 11:21] VITALS: BP 134/76
[2017-06-05] MEDS: INSULIN REGULAR, HUMAN 300 UNIT/3 ML VIAL SQ PRN (13:19)
[2017-06-05] MEDS: Z GUARD REMEDY PASTE 57 GM TUBE TOP SCH ×2 (13:20→20:13)
--- NOTE | 2017-06-05 15:48 | NUR ---
CLINICAL PHARMACY NOTE: VANCOMYCIN PHARMACY TO DOSE Subjective: To continue vancomycin in this 61 y/o male for indication of UTI(MRSA) and sepsis Objective: weight 175 LB height 68'' BUN 69 Scr 5.1 Wbc 13.8 temp 98.4 No on HD yet. Vancomycin 1 gram x1 was given yesterday at 1200 Assessment/Plan Will continue to dose by fall off level due to decreased renal function. Vancomycin random is ordered on am labs. Will follow the level for further dosing. Addendum: 06/05/17 at 1652 by ANNA POLK VANCOMYCIN RANDOM WAS 23 ON AM LABS TODAY. NO DOSE WILL BE GIVEN. WILL CHECK RANDOM IN AM FOR FURTHER DOSING.
[2017-06-05 16:04] VITALS: BP 120/62
--- NOTE | 2017-06-05 17:58 | NUR ---
PT IS MEDICATION COMPLIANT, CALM, COOPERATIVE. OBSERVED IN ROOM AWAKE, AOX1, ROOM FREE OF CLUTTER, BED AT LOWEST LOCKED POSITION. PLAN OF CARE VERBALIZED: PT EDUCATED ABOUT SIGNS AND SYMPTOMS OF MEDICATIONS. PT CAN VERBALIZE ONE OUT OF THREE SIDE EFFECTS, PT REMAINS CONFUSED AND NEEDS FURTHER TEACHING.
--- NOTE | 2017-06-05 19:30 | NUR ---
Pt in room calm and sleeping at this time. No new orders. Continuing on medsurg in no acute distress. Continue to monitor. 3 side rails up. Contact precaution advised as usual.
[2017-06-05 20:00] VITALS: BP 163/84
[2017-06-05] MEDS: ATORVASTATIN 40 MG TABLET PO SCH (20:10)
--- NOTE | 2017-06-06 00:55 | NUR ---
Pt in room asleep. No s/s of hyper/hypoglycemia. Denies any pain or discomfort at this time. Continue to monitor. 3 side rails raised.
--- NOTE | 2017-06-06 05:00 | NUR ---
Pt asleep in room in no acute distress. Continues assistance with feeding and reorienting. Pt denies any pain or discomfort at this time. Awaiting lab draws for upcoming Vancomyin levels. Continue to monitor. 3 side rails raised and repositioned.
--- NOTE | 2017-06-06 06:00 | NUR ---
PT IN ROOM ALERT AWAKE IN NO ACUTE DISTRESS WITH OCCASIONAL REQUESTS OF SOMETHING TO EAT AND DRINK. STATES I AM HUNGRY. DENIES ANY PAIN OR DISCOMFORT AT THIS TIME. BP NOTED 161/55. NO HEADACHES, DIZZINESS, OR SHORTNESS OF BREATHE. CONTINUE TO MONITOR. REMAINS IN CONTACT ISOLATION. 3 SIDE RAILS RAISED.
[2017-06-06 06:34] VITALS: BP 161/91
[2017-06-06 06:34] LABS: BILIRUBIN,TOTAL 0.3 mg/dL (0.2-1.0); MAGNESIUM 1.9 mg/dL (1.8-2.4); PHOSPHOROUS 3.9 mg/dL (2.5-4.9); POTASSIUM 4.8 mmol/L (3.5-5.1); TOTAL PROTEIN, SERUM 6.6 g/dL (6.4-8.2)
[2017-06-06 06:47] LABS: BASOPHILS # (AUTO) 0.1 K/uL (0.0-8.0); BASOPHILS % (AUTO) 0.6 % (0.0-2.0); EOSINOPHILS # (AUTO) 0.6 K/uL (0.0-0.7); EOSINOPHILS % (AUTO) 4.9 % (0.0-7.0); HEMATOCRIT 28.3 % (36.7-47.1); HEMOGLOBIN 9.3 g/dL (12.5-16.3); LYMPHOCYTES # (AUTO) 1.8 K/uL (20.0-40.0); LYMPHOCYTES % (AUTO) 14.6 % (20.5-51.5); MEAN CORPUSCULAR HGB CONC 33 g/dL (32.5-36.3); MEAN CORPUSCULAR VOLUME 88.2 fL (73.0-96.2); MONOCYTES # (AUTO) 0.9 K/uL (2.0-10.0); MONOCYTES % (AUTO) 7.4 % (0.0-11.0); NEUTROPHILS % (AUTO) 72.5 % (38.5-71.5); PLATELET COUNT (AUTO) 454 K/uL (152-348); RED BLOOD CELL COUNT(AUTO) 3.21 MIL/uL (4.06-5.63); WHITE BLOOD COUNT (AUTO) 12.4 K/uL (3.6-10.2)
[2017-06-06 06:51] LABS: VANCOMYCIN,RANDOM 18.3 ug/mL (18.0-26.0)
--- NOTE | 2017-06-06 07:30 | NUR ---
Received patient in bed, awake and alert, verbally repsonsive, skin is warm and dry to touch, afebrile, on isolation precations, observed strictly. Positioned semi fowlers for ease and comfort of breathing and prevent aspiration. No episode of hypo or hyperglycemia at this time, will continue to monitor.
[2017-06-06] MEDS: BLOOD SUGAR DIAGNOSTIC 1 EACH STRIP VI SCH ×3 (07:51→17:08)
[2017-06-06] MEDS: CALCIUM ACETATE 667 MG CAPSULE PO SCH ×2 (07:51→17:04)
[2017-06-06] MEDS: INSULIN REGULAR, HUMAN 300 UNIT/3 ML VIAL SQ PRN ×3 (08:05→17:12)
[2017-06-06] MEDS: MUPIROCIN 2% OINT 22 GM TUBE NS SCH ×2 (08:08→22:25)
[2017-06-06] MEDS: ASPIRIN EC 81 MG TABLET.DR PO SCH (08:09)
[2017-06-06] MEDS: CLOPIDOGREL 75 MG TABLET PO SCH (08:09)
[2017-06-06] MEDS: AMLODIPINE 10 MG TABLET PO SCH (08:09)
[2017-06-06] MEDS: ISOSORBIDE MONONITRATE 30 MG TAB.SR.24H PO SCH (08:09)
[2017-06-06] MEDS: LACTOBACILLUS RHAMNOSUS GG 1 EACH CAPSULE PO SCH ×2 (08:10→20:48)
[2017-06-06] MEDS ORDERED: CLONIDINE HCL 0.1 MG TABLET PO PRN (08:15)
--- NOTE | 2017-06-06 08:30 | NUR ---
patient was noted with an elevated blood pressure of 182/92 Dr Johan Jamison was made aware and made new orders noted and carried out, see MAR.
[2017-06-06] MEDS: CARVEDILOL 12.5 MG TABLET PO SCH ×2 (08:37→17:05)
[2017-06-06] MEDS: Z GUARD REMEDY PASTE 57 GM TUBE TOP SCH ×2 (08:38→20:48)
--- NOTE | 2017-06-06 09:00 | NUR ---
Patient had a loose BM x1, no signs and symptoms of dehydration noted, fair skin turgor, kept clean and dry.
[2017-06-06 10:12] VITALS: BP 141/81
[2017-06-06 11:13] VITALS: BP 143/79
[2017-06-06 11:15] LABS: BAND % (MANUAL) 2 % (0-10); EOSINOPHILS % (MANUAL) 5 % (0-8); LYMPHOCYTES % (MANUAL) 15 % (20-40); METAMYELOCYTES % 1 % (0-1); MONOCYTES % (MANUAL) 8 % (2-10); MYELOCYTES % 2 % (0-0); NEUTROPHILS % (MANUAL) 67 % (42-75)
[2017-06-06] MEDS ORDERED: VANCOMYCIN IV 1 G in PREMIXED 0 EACH IV ONE (12:00)
--- NOTE | 2017-06-06 12:00 | NUR ---
Patient in bed, not in pain and not in distress, on IV antibiotic therapy with no adverse reactions, no side effects noted at this time.
--- NOTE | 2017-06-06 12:00 | NUR ---
Patient had another loose BM with no signs and symptoms of dehydration at the moment, needs attended promptly kept clean and dry. will continue to monitor.
--- NOTE | 2017-06-06 14:18 | NUR ---
CLINICAL PHARMACY NOTE: VANCOMYCIN PHARMACY TO DOSE Subjective: To continue vancomycin in this 61 y/o male for indication of UTI(MRSA) and sepsis Objective: weight 175 LB height 68'' BUN 70 Scr 5.0 Wbc 12.4 temp 98.1 No on HD yet. random: 18.3 today am labs Assessment/Plan Will continue to dose by fall off level due to decreased renal function. Based on random, dosed another 1gm vanco today at 1200. Will follow nad order random as needed. to follow
[2017-06-06 15:09] VITALS: BP 156/86
--- NOTE | 2017-06-06 16:30 | NUR ---
Patient is in bed, awake, alert with periods of forgetfulness, breathing even and non labored, not in any pain, kept clean and dry, needs attended promptly. No episode of hypo or hyperglycemia at this time. will continue to monitor.
--- NOTE | 2017-06-06 18:50 | NUR ---
Patient is in bed, not in pain, not in distress, respiratory on regular rate and rhythm, need attended, kept clean and dry, fall precautions observed and aspiration precautions observed as well, on diabetic diet, with no hypo or hyperglycemia noted, kept clean and dry, call light kept in reach.
--- NOTE | 2017-06-06 18:55 | NUR ---
Patient has no more episode of loose stools at this time, kept comfortable.
[2017-06-06 20:00] VITALS: BP 147/80
[2017-06-06] MEDS: ATORVASTATIN 40 MG TABLET PO SCH (20:48)
[2017-06-07 05:22] VITALS: BP 130/63
[2017-06-07 06:54] LABS: BILIRUBIN,TOTAL 0.3 mg/dL (0.2-1.0); CREATININE 4.8 mg/dL (0.6-1.3); MAGNESIUM 1.8 mg/dL (1.8-2.4); POTASSIUM 4.8 mmol/L (3.5-5.1); TOTAL PROTEIN, SERUM 6.7 g/dL (6.4-8.2)
[2017-06-07 06:56] LABS: BASOPHILS % (AUTO) 0.4 % (0.0-2.0); EOSINOPHILS # (AUTO) 0.5 K/uL (0.0-0.7); EOSINOPHILS % (AUTO) 4.6 % (0.0-7.0); HEMATOCRIT 29.3 % (36.7-47.1); HEMOGLOBIN 9.6 g/dL (12.5-16.3); LYMPHOCYTES # (AUTO) 1.8 K/uL (20.0-40.0); LYMPHOCYTES % (AUTO) 14.9 % (20.5-51.5); MEAN CORPUSCULAR HEMOGLOBIN 29.1 uug (23.8-33.4); MEAN CORPUSCULAR HGB CONC 33 g/dL (32.5-36.3); MEAN CORPUSCULAR VOLUME 88.5 fL (73.0-96.2); MONOCYTES # (AUTO) 0.8 K/uL (2.0-10.0); MONOCYTES % (AUTO) 6.6 % (0.0-11.0); NEUTROPHILS # (AUTO) 8.8 K/uL (1.8-8.9); NEUTROPHILS % (AUTO) 73.5 % (38.5-71.5); PLATELET COUNT (AUTO) 447 K/uL (152-348); RED BLOOD CELL COUNT(AUTO) 3.31 MIL/uL (4.06-5.63)
[2017-06-07] MEDS: BLOOD SUGAR DIAGNOSTIC 1 EACH STRIP VI SCH ×3 (07:07→16:15)
[2017-06-07] MEDS: INSULIN REGULAR, HUMAN 300 UNIT/3 ML VIAL SQ PRN ×3 (07:30→17:12)
[2017-06-07] MEDS: CALCIUM ACETATE 667 MG CAPSULE PO SCH ×2 (08:00→17:15)
[2017-06-07] MEDS: CLOPIDOGREL 75 MG TABLET PO SCH (08:00)
[2017-06-07] MEDS: LACTOBACILLUS RHAMNOSUS GG 1 EACH CAPSULE PO SCH ×2 (08:00→21:30)
[2017-06-07] MEDS: AMLODIPINE 10 MG TABLET PO SCH (08:00)
[2017-06-07] MEDS: CARVEDILOL 12.5 MG TABLET PO SCH ×2 (08:01→17:15)
[2017-06-07] MEDS: ASPIRIN EC 81 MG TABLET.DR PO SCH (08:01)
[2017-06-07] MEDS: ISOSORBIDE MONONITRATE 30 MG TAB.SR.24H PO SCH (08:01)
[2017-06-07] MEDS: MUPIROCIN 2% OINT 22 GM TUBE NS SCH ×2 (08:01→21:30)
[2017-06-07] MEDS: Z GUARD REMEDY PASTE 57 GM TUBE TOP SCH ×2 (08:30→21:30)
[2017-06-07 09:44] LABS: BAND % (MANUAL) 2 % (0-10); EOSINOPHILS % (MANUAL) 3 % (0-8); LYMPHOCYTES % (MANUAL) 12 % (20-40); METAMYELOCYTES % 1 % (0-1); MONOCYTES % (MANUAL) 5 % (2-10); MYELOCYTES % 2 % (0-0); NEUTROPHILS % (MANUAL) 75 % (42-75)
[2017-06-07 11:19] VITALS: BP 132/75
[2017-06-07 15:25] VITALS: BP 147/74
--- NOTE | 2017-06-07 16:37 | NUR ---
CLINICAL PHARMACY NOTE: VANCOMYCIN PHARMACY TO DOSE Subjective: To continue vancomycin in this 61 y/o male for indication of UTI(MRSA) and sepsis Objective: weight 175 LB height 68'' BUN 70 Scr 4.8 Wbc 12 temp 98.6 No on HD yet. Vancomycin 1gram given 06/06 at 1200 Assessment/Plan Will continue to dose by fall off level due to decreased renal function. Vancomycin random level is on order for am labs. Will follow for further dosing.
[2017-06-07 19:15] VITALS: BP 153/81
[2017-06-07 20:00] VITALS: BP 153/81
[2017-06-07] MEDS: ATORVASTATIN 40 MG TABLET PO SCH (21:30)
[2017-06-08 04:00] VITALS: BP 96/75
[2017-06-08 04:15] VITALS: BP 128/78
[2017-06-08] MEDS: BLOOD SUGAR DIAGNOSTIC 1 EACH STRIP VI SCH ×3 (07:13→16:18)
[2017-06-08 07:21] LABS: BASOPHILS # (AUTO) 0.1 K/uL (0.0-8.0); BASOPHILS % (AUTO) 0.6 % (0.0-2.0); EOSINOPHILS # (AUTO) 0.6 K/uL (0.0-0.7); EOSINOPHILS % (AUTO) 6.1 % (0.0-7.0); HEMATOCRIT 30.3 % (36.7-47.1); LYMPHOCYTES # (AUTO) 2.1 K/uL (20.0-40.0); LYMPHOCYTES % (AUTO) 21.4 % (20.5-51.5); MEAN CORPUSCULAR HEMOGLOBIN 29.1 uug (23.8-33.4); MEAN CORPUSCULAR HGB CONC 33 g/dL (32.5-36.3); MEAN CORPUSCULAR VOLUME 88.5 fL (73.0-96.2); MONOCYTES # (AUTO) 0.7 K/uL (2.0-10.0); NEUTROPHILS # (AUTO) 6.2 K/uL (1.8-8.9); NEUTROPHILS % (AUTO) 64.9 % (38.5-71.5); PLATELET COUNT (AUTO) 435 K/uL (152-348); RED BLOOD CELL COUNT(AUTO) 3.43 MIL/uL (4.06-5.63); WHITE BLOOD COUNT (AUTO) 9.6 K/uL (3.6-10.2)
[2017-06-08 07:23] LABS: BILIRUBIN,TOTAL 0.3 mg/dL (0.2-1.0); CREATININE 4.5 mg/dL (0.6-1.3); MAGNESIUM 1.8 mg/dL (1.8-2.4); POTASSIUM 4.9 mmol/L (3.5-5.1); TOTAL PROTEIN, SERUM 6.8 g/dL (6.4-8.2); VANCOMYCIN,RANDOM 21.5 ug/mL (18.0-26.0)
[2017-06-08] MEDS: CALCIUM ACETATE 667 MG CAPSULE PO SCH ×2 (08:00→18:00)
[2017-06-08] MEDS: AMLODIPINE 10 MG TABLET PO SCH (08:00)
[2017-06-08] MEDS: CARVEDILOL 12.5 MG TABLET PO SCH ×2 (08:00→16:25)
[2017-06-08] MEDS: ASPIRIN EC 81 MG TABLET.DR PO SCH (08:00)
[2017-06-08] MEDS: CLOPIDOGREL 75 MG TABLET PO SCH (08:01)
[2017-06-08] MEDS: ISOSORBIDE MONONITRATE 30 MG TAB.SR.24H PO SCH (08:01)
[2017-06-08] MEDS: MUPIROCIN 2% OINT 22 GM TUBE NS SCH ×2 (08:01→21:10)
[2017-06-08] MEDS: Z GUARD REMEDY PASTE 57 GM TUBE TOP SCH ×2 (08:24→21:10)
[2017-06-08] MEDS: LACTOBACILLUS RHAMNOSUS GG 1 EACH CAPSULE PO SCH ×2 (08:24→21:10)
[2017-06-08] MEDS: LORAZEPAM 1 MG TABLET PO PRN (10:19)
[2017-06-08] MEDS: INSULIN REGULAR, HUMAN 300 UNIT/3 ML VIAL SQ PRN (10:54)
[2017-06-08 11:44] VITALS: BP 135/72
[2017-06-08] MEDS ORDERED: LACT1CAP57 PO (13:02)
[2017-06-08] MEDS ORDERED: RXVAN XX (13:02)
--- NOTE | 2017-06-08 13:45 | NUR ---
CLINICAL PHARMACY NOTE: VANCOMYCIN PHARMACY TO DOSE Subjective: To continue vancomycin in this 61 y/o male for indication of UTI(MRSA) and sepsis Objective: weight 175 LB height 68'' BUN 66 Scr 4.5 Wbc 9.6 temp 98.2 No on HD yet. Vancomycin 1gram given 06/06 at 1200 random today am labs: 21.5 Assessment/Plan Will continue to dose by fall off level due to decreased renal function. No dose today, will follow next random tomorrow am for further dosing. Will follow
[2017-06-08 16:07] VITALS: BP 136/76
[2017-06-08 19:05] VITALS: BP 158/92
[2017-06-08] MEDS: ATORVASTATIN 40 MG TABLET PO SCH (21:10)
[2017-06-09 04:00] VITALS: BP 145/84
[2017-06-09] MEDS: BLOOD SUGAR DIAGNOSTIC 1 EACH STRIP VI SCH ×3 (07:19→16:46)
[2017-06-09] MEDS: CALCIUM ACETATE 667 MG CAPSULE PO SCH ×2 (08:19→16:48)
[2017-06-09] MEDS: ASPIRIN EC 81 MG TABLET.DR PO SCH (08:19)
[2017-06-09] MEDS: AMLODIPINE 10 MG TABLET PO SCH (08:19)
[2017-06-09] MEDS: LACTOBACILLUS RHAMNOSUS GG 1 EACH CAPSULE PO SCH ×2 (08:19→20:02)
[2017-06-09] MEDS: CARVEDILOL 12.5 MG TABLET PO SCH ×2 (08:20→16:47)
[2017-06-09] MEDS: ISOSORBIDE MONONITRATE 30 MG TAB.SR.24H PO SCH (08:20)
[2017-06-09] MEDS: MUPIROCIN 2% OINT 22 GM TUBE NS SCH ×2 (08:21→20:02)
[2017-06-09] MEDS: CLOPIDOGREL 75 MG TABLET PO SCH (08:21)
[2017-06-09] MEDS: Z GUARD REMEDY PASTE 57 GM TUBE TOP SCH ×2 (08:28→20:09)
[2017-06-09 11:13] VITALS: BP 160/81
[2017-06-09] MEDS ORDERED: VANCOMYCIN IV 1 G in PREMIXED 0 EACH IV ONE (12:00)
[2017-06-09] MEDS: INSULIN REGULAR, HUMAN 300 UNIT/3 ML VIAL SQ PRN ×2 (12:17→16:45)
--- NOTE | 2017-06-09 12:33 | NUR ---
CLINICAL PHARMACY NOTE: VANCOMYCIN PHARMACY TO DOSE Subjective: To continue vancomycin in this 61 y/o male for indication of UTI(MRSA) and sepsis Objective: weight 175 LB height 68'' BUN 66 (12/) Scr 4.5 (12) Wbc 9.6 (12/) temp 98 No on HD yet. random today am labs: 17.2 Assessment/Plan Will continue to dose by fall off level due to decreased renal function. Since vanco random level is below 20 mcg/ml, will give vancomycin 1000mg IVPB x1 dose today. Pharmacy shall review srcr & decide when to order next random level for further dosing. Will follow
[2017-06-09] MEDS: LORAZEPAM 1 MG TABLET PO PRN (14:29)
[2017-06-09 14:58] VITALS: BP 130/67
--- NOTE | 2017-06-09 17:50 | NUR ---
Pt was given an Ativan at 1429 due to increased agitation, yelling, screaming, disoriented, swinging at staff. Pt was also moved to a new room 201 due to the increased agitation and screaming. Pt was un-consolable. Pt could not be redirected.
--- NOTE | 2017-06-09 19:30 | NUR ---
Pt in room calm in no acute distress. No s/s of IV abx reaction. Denies any pain or discomfort at this time. 3 Side rails up. HOB elevated 30 degrees. Continue to monitor.
[2017-06-09] MEDS: ATORVASTATIN 40 MG TABLET PO SCH (20:02)
--- NOTE | 2017-06-10 01:00 | NUR ---
Pt in room asleep requesting drinks occasionally. No s/s of acute distress. 3 side rails raised. HOB elevated 30 degrees. Continue to monitor.
[2017-06-10 06:59] LABS: BASOPHILS % (AUTO) 0.3 % (0.0-2.0); EOSINOPHILS # (AUTO) 0.3 K/uL (0.0-0.7); EOSINOPHILS % (AUTO) 2.3 % (0.0-7.0); HEMATOCRIT 29.7 % (36.7-47.1); HEMOGLOBIN 9.7 g/dL (12.5-16.3); LYMPHOCYTES # (AUTO) 1.4 K/uL (20.0-40.0); LYMPHOCYTES % (AUTO) 10.3 % (20.5-51.5); MEAN CORPUSCULAR HEMOGLOBIN 28.9 uug (23.8-33.4); MEAN CORPUSCULAR HGB CONC 33 g/dL (32.5-36.3); MEAN CORPUSCULAR VOLUME 88.1 fL (73.0-96.2); MONOCYTES % (AUTO) 7.4 % (0.0-11.0); NEUTROPHILS # (AUTO) 10.9 K/uL (1.8-8.9); NEUTROPHILS % (AUTO) 79.7 % (38.5-71.5); PLATELET COUNT (AUTO) 373 K/uL (152-348); RED BLOOD CELL COUNT(AUTO) 3.37 MIL/uL (4.06-5.63); WHITE BLOOD COUNT (AUTO) 13.7 K/uL (3.6-10.2)
[2017-06-10] MEDS: BLOOD SUGAR DIAGNOSTIC 1 EACH STRIP VI SCH ×2 (07:07→11:42)
[2017-06-10 07:36] LABS: BILIRUBIN,TOTAL 0.2 mg/dL (0.2-1.0); CREATININE 4.3 mg/dL (0.6-1.3); MAGNESIUM 1.8 mg/dL (1.8-2.4); PHOSPHOROUS 4.1 mg/dL (2.5-4.9); POTASSIUM 4.9 mmol/L (3.5-5.1); TOTAL PROTEIN, SERUM 6.8 g/dL (6.4-8.2)
[2017-06-10] MEDS: INSULIN REGULAR, HUMAN 300 UNIT/3 ML VIAL SQ PRN ×2 (07:50→11:46)
[2017-06-10] MEDS: CALCIUM ACETATE 667 MG CAPSULE PO SCH (08:00)
[2017-06-10] MEDS: LORAZEPAM 1 MG TABLET PO PRN (08:41)
[2017-06-10] MEDS: Z GUARD REMEDY PASTE 57 GM TUBE TOP SCH (08:45)
[2017-06-10] MEDS: MUPIROCIN 2% OINT 22 GM TUBE NS SCH (08:48)
[2017-06-10] MEDS: CARVEDILOL 12.5 MG TABLET PO SCH ×2 (08:49→11:09)
[2017-06-10] MEDS: CLOPIDOGREL 75 MG TABLET PO SCH ×2 (08:50→11:10)
[2017-06-10] MEDS: AMLODIPINE 10 MG TABLET PO SCH (08:50)
[2017-06-10] MEDS: ISOSORBIDE MONONITRATE 30 MG TAB.SR.24H PO SCH (08:50)
[2017-06-10] MEDS: LACTOBACILLUS RHAMNOSUS GG 1 EACH CAPSULE PO SCH (08:51)
[2017-06-10] MEDS: ASPIRIN EC 81 MG TABLET.DR PO SCH (08:51)
--- NOTE | 2017-06-10 09:12 | NUR ---
PATRICIA IS CONFUSED AND DISORIENTED SCREAMING AT THE TOP OF HIS VOICE UNABLE TO RELATE NEEDS ATTEMPTING TO GET OUT OF BED BY THROWING HIS LEGS OVER THE SIDE RAILS AND WAS SEEN AT ONE POINT WITH BOTH LEGS DOWN ON THE FLOOR AND AT RISK FOR FALLS ATTEMPTED TO GIVE HIM HIS DUE MEDICATIONS IN ADDITION TO ATIVAN TO CALM HIM DOWN BUT HE REFUSED.
--- NOTE | 2017-06-10 09:15 | NUR ---
PATIENT PLACED IN TOVA CHAIR FOR SAFETY MADE COMFORTABLE AND WILL CONTINUE TO OBSERVE
--- NOTE | 2017-06-10 10:28 | NUR ---
NEW ORDERS TO DISCHARGE PATIENT TODAY RECEIVED FROM DR LEYVA AND CARRIED OUT.
--- NOTE | 2017-06-10 11:13 | NUR ---
BLOOD PRESSURE AT THIS TIME IS 167/87 SO I MANAGED TO CONVINCE PATIENT TO TAKE HIS MORNING BLOOD PRESSURE MEDS.WILL CONTINUE TO OBSERVE.
[2017-06-10 11:30] VITALS: BP 152/84
--- NOTE | 2017-06-10 12:45 | NUR ---
PATIENT WILL BE DISCHARGED TO [facility] TODAY.
--- NOTE | 2017-06-10 13:52 | NUR ---
PATIENT DISCHARGED PICKED UP BY [facility] IN SATISFACTORY CONDITION WITH DISCHARGE INSTRUCTIONS AND REPORT WAS GIVEN TO THE AMBULANCE DRIVERS FOR CONTINUING CARE.
== END 2017-06-10 13:50 | DRG 871 ==
LOC: ER 23:52 → TELE 06-02 06:17 → MED 06-04 15:15
PROVIDERS: ADMIT Internal Medicine; ATTEND Internal Medicine
DX: A41.9 Sepsis, unspecified organism (principal); G93.40 Encephalopathy, unspecified; I21.A1 Myocardial infarction type 2; N17.9 Acute kidney failure, unspecified; E87.2 Acidosis; I13.11 Hypertensive heart and chronic kidney disease without heart failure, with stage 5 chronic kidney disease, or end stage renal disease; N18.5 Chronic kidney disease, stage 5; N39.0 Urinary tract infection, site not specified; E11.22 Type 2 diabetes mellitus with diabetic chronic kidney disease; E11.319 Type 2 diabetes mellitus with unspecified diabetic retinopathy without macular edema; B95.61 Methicillin susceptible Staphylococcus aureus infection as the cause of diseases classified elsewhere; E78.5 Hyperlipidemia, unspecified; F41.9 Anxiety disorder, unspecified; H54.8 Legal blindness, as defined in USA; Z79.4 Long term (current) use of insulin; Z87.891 Personal history of nicotine dependence; E83.9 Disorder of mineral metabolism, unspecified; I25.10 Atherosclerotic heart disease of native coronary artery without angina pectoris; Z22.322 Carrier or suspected carrier of Methicillin resistant Staphylococcus aureus; B95.62 Methicillin resistant Staphylococcus aureus infection as the cause of diseases classified elsewhere; D64.9 Anemia, unspecified
CPT/HCPCS: 36415; 70030-TC; 71010; 76770; 83550; 83605; 83735; 84100; 84156; 84300; 85025; 85730; 86705; 86706; 86708; 86803; 87040; 87077; 87086; 87340; 93005; A4663; J0696; J1815; J2060; J2185; J2543; J3370; J3490; J7030; J7050; J7060

== ENCOUNTER 2017-07-09 20:13 | Inpatient (IN) | payer MEDICAID, OTHER ==
[~2017-07-09] VITALS: Ht 177.8 cm; Wt 75.7 kg
[~2017-07-09 20:13] MED LIST changes: +CALC667T5 PO; -INSU100I26 SQ; +INSU100V11; +INSU100V7 SQ; +LACT1CAP57 PO
[2017-07-09] MEDS ORDERED: IV NORMAL SALINE 1000 ML BAG IV ONE (20:45)
[2017-07-09 21:15] LABS: BASOPHILS % (AUTO) 0.3 % (0.0-2.0); HEMOGLOBIN 8.7 g/dL (12.5-16.3); MEAN CORPUSCULAR VOLUME 86.5 fL (73.0-96.2); MONOCYTES # (AUTO) 1.2 K/uL (2.0-10.0); MONOCYTES % (AUTO) 9.4 % (0.0-11.0)
[2017-07-09 21:26] LABS: EOSINOPHILS % (AUTO) 8.2 % (0.0-7.0); HEMATOCRIT 26.3 % (36.7-47.1); LYMPHOCYTES % (AUTO) 8.2 % (20.5-51.5); MEAN CORPUSCULAR HEMOGLOBIN 28.5 uug (23.8-33.4); MEAN CORPUSCULAR HGB CONC 33 g/dL (32.5-36.3); NEUTROPHILS # (AUTO) 9.2 K/uL (1.8-8.9); NEUTROPHILS % (AUTO) 73.9 % (38.5-71.5); PLATELET COUNT (AUTO) 257 K/uL (152-348); RED BLOOD CELL COUNT(AUTO) 3.04 MIL/uL (4.06-5.63); WHITE BLOOD COUNT (AUTO) 12.5 K/uL (3.6-10.2)
[2017-07-09 21:28] LABS: CREATININE 5.5 mg/dL (0.6-1.3)
[2017-07-09 21:45] LABS: BILIRUBIN,DIRECT 0.1 mg/dL (0.0-0.2); BILIRUBIN,TOTAL 0.3 mg/dL (0.2-1.0)
[2017-07-09] MEDS ORDERED: LORAZEPAM 2 MG/1 ML VIAL IV ONE (22:30)
[2017-07-09] MEDS ORDERED: LORAZEPAM 2 MG/1 ML VIAL ONE (22:48)
[2017-07-09] MEDS ORDERED: diphenhydrAMINE 50 MG/1 ML VIAL IV ONE (23:15)
[2017-07-09] MEDS ORDERED: HALOPERIDOL LACTATE 5 MG/1 ML VIAL IV ONE (23:15)
[2017-07-09] MEDS ORDERED: diphenhydrAMINE 50 MG/1 ML VIAL ONE (23:26)
[2017-07-09] MEDS ORDERED: HALOPERIDOL LACTATE 5 MG/1 ML VIAL ONE (23:26)
[2017-07-10] MEDS ORDERED: IV NS 1000 ML 1,000 ML IV SCH (02:15)
[2017-07-10] MEDS ORDERED: ONDANSETRON 4 MG/2 ML VIAL IV PRN (02:15)
[2017-07-10] MEDS ORDERED: ACETAMINOPHEN 650 MG/20.3 ML LIQUID UDC PO PRN (02:15)
[2017-07-10 02:30] VITALS: BP 132/87
[2017-07-10] MEDS: IV NS 1000 ML 1,000 ML IV PRN (02:44)
[2017-07-10] MEDS ORDERED: HYDROCODONE/APAP 10-325 MG TABLET PO PRN (08:15)
[2017-07-10] MEDS ORDERED: DICYCLOMINE HCL 10 MG CAPSULE PO PRN (08:15)
[2017-07-10] MEDS ORDERED: DEXTROSE 50% 50 ML DISP.SYRIN IV PRN (08:15)
[2017-07-10] MEDS: CLOPIDOGREL 75 MG TABLET PO SCH (09:15)
[2017-07-10] MEDS: CALCIUM ACETATE 667 MG CAPSULE PO SCH ×2 (09:15→17:51)
[2017-07-10] MEDS: LACTOBACILLUS RHAMNOSUS GG 1 EACH CAPSULE PO SCH ×2 (09:15→20:10)
[2017-07-10] MEDS: ISOSORBIDE MONONITRATE 30 MG TAB.SR.24H PO SCH (09:16)
[2017-07-10] MEDS: CARVEDILOL 12.5 MG TABLET PO SCH ×2 (09:17→17:52)
[2017-07-10] MEDS: AMLODIPINE 10 MG TABLET PO SCH (09:17)
[2017-07-10] MEDS: BLOOD SUGAR DIAGNOSTIC 1 EACH STRIP VI SCH ×3 (11:35→20:11)
[2017-07-10 13:09] LABS: *BILIRUBIN,URIN NEGATIVE (NEGATIVE); *BLOOD, URINE 2+ (NEGATIVE); *CLARITY,URINE CLEAR (CLEAR); *COLOR,URINE YELLOW (YELLOW); *KETONES,URINE NEGATIVE (NEGATIVE); *UROBILINOGEN,URINE 0.2 E.U./dl (NORMAL); LEUKOCYTE ESTERASE ,URINE NEGATIVE (NEGATIVE); NITRITE, URINE NEGATIVE (NEGATIVE); PH,URINE 6.5 (5.0-8.0); UGLUCOSE TRACE (NEGATIVE)
[2017-07-10 13:21] LABS: *PROTEIN,URINE 3+ (NEGATIVE)
[2017-07-10 13:23] LABS: RBC,URINE 20-50 /HPF (0-3); WBC,URINE 0-3 /HPF (0-3)
[2017-07-10 13:24] LABS: BACTERIA,URINE NONE SEEN /HPF (NONE SEEN); SQUAMOUS EPITHELIAL CELL,UR FEW /HPF (NONE SEEN)
[2017-07-10 16:31] LABS: *CREATININE,URINE 45.8 mg/dL (30-125)
[2017-07-10] MEDS: INSULIN REGULAR, HUMAN 300 UNIT/3 ML VIAL SQ PRN ×2 (17:59→20:16)
[2017-07-10] MEDS: ATORVASTATIN 40 MG TABLET PO SCH (20:10)
[2017-07-10] MEDS: INSULIN DETEMIR 300 UNIT/3 ML CARTRIDGE SQ SCH (20:59)
[2017-07-10 21:10] VITALS: BP 118/68
[2017-07-11] MEDS: IV NS 1000 ML 1,000 ML IV PRN (00:43)
[2017-07-11] MEDS: BLOOD SUGAR DIAGNOSTIC 1 EACH STRIP VI SCH ×4 (06:34→21:28)
[2017-07-11 07:52] VITALS: BP 134/74
[2017-07-11 08:11] LABS: BASOPHILS % (AUTO) 0.6 % (0.0-2.0); EOSINOPHILS # (AUTO) 0.9 K/uL (0.0-0.7); EOSINOPHILS % (AUTO) 12.1 % (0.0-7.0); HEMATOCRIT 23.5 % (36.7-47.1); HEMOGLOBIN 7.8 g/dL (12.5-16.3); LYMPHOCYTES # (AUTO) 2.2 K/uL (20.0-40.0); LYMPHOCYTES % (AUTO) 28.3 % (20.5-51.5); MEAN CORPUSCULAR HEMOGLOBIN 28.8 uug (23.8-33.4); MEAN CORPUSCULAR HGB CONC 33 g/dL (32.5-36.3); MEAN CORPUSCULAR VOLUME 87.2 fL (73.0-96.2); MONOCYTES # (AUTO) 0.7 K/uL (2.0-10.0); NEUTROPHILS # (AUTO) 3.8 K/uL (1.8-8.9); PLATELET COUNT (AUTO) 225 K/uL (152-348); WHITE BLOOD COUNT (AUTO) 7.7 K/uL (3.6-10.2)
[2017-07-11 08:41] LABS: BILIRUBIN,TOTAL 0.2 mg/dL (0.2-1.0); CREATININE 5.1 mg/dL (0.6-1.3); MAGNESIUM 1.4 mg/dL (1.8-2.4); PHOSPHOROUS 3.8 mg/dL (2.5-4.9); POTASSIUM 4.6 mmol/L (3.5-5.1); TOTAL PROTEIN, SERUM 6.2 g/dL (6.4-8.2)
[2017-07-11] MEDS: CALCIUM ACETATE 667 MG CAPSULE PO SCH ×2 (10:35→18:44)
[2017-07-11] MEDS: CARVEDILOL 12.5 MG TABLET PO SCH ×2 (10:35→18:45)
[2017-07-11] MEDS: AMLODIPINE 10 MG TABLET PO SCH (10:35)
[2017-07-11] MEDS: ISOSORBIDE MONONITRATE 30 MG TAB.SR.24H PO SCH (10:35)
[2017-07-11] MEDS: CLOPIDOGREL 75 MG TABLET PO SCH (10:35)
[2017-07-11] MEDS: LACTOBACILLUS RHAMNOSUS GG 1 EACH CAPSULE PO SCH ×2 (10:35→20:40)
[2017-07-11] MEDS: MAGNESIUM SULFATE/D5W 100 ML IV SCH ×2 (12:45→15:12)
[2017-07-11 20:07] VITALS: BP 143/85
[2017-07-11] MEDS: ATORVASTATIN 40 MG TABLET PO SCH (20:40)
[2017-07-11] MEDS: INSULIN DETEMIR 300 UNIT/3 ML CARTRIDGE SQ SCH (20:42)
[2017-07-11] MEDS: INSULIN REGULAR, HUMAN 300 UNIT/3 ML VIAL SQ PRN (20:43)
[2017-07-12] MEDS: IV NS 1000 ML 1,000 ML IV PRN ×2 (00:27→20:51)
[2017-07-12] MEDS: LORAZEPAM 1 MG TABLET PO PRN (01:03)
[2017-07-12] MEDS: BLOOD SUGAR DIAGNOSTIC 1 EACH STRIP VI SCH ×4 (06:32→20:33)
[2017-07-12 08:03] LABS: BASOPHILS % (AUTO) 0.6 % (0.0-2.0); EOSINOPHILS # (AUTO) 0.8 K/uL (0.0-0.7); EOSINOPHILS % (AUTO) 9.2 % (0.0-7.0); HEMATOCRIT 25.6 % (36.7-47.1); HEMOGLOBIN 8.6 g/dL (12.5-16.3); LYMPHOCYTES # (AUTO) 1.5 K/uL (20.0-40.0); LYMPHOCYTES % (AUTO) 17.1 % (20.5-51.5); MEAN CORPUSCULAR HEMOGLOBIN 29.1 uug (23.8-33.4); MEAN CORPUSCULAR HGB CONC 34 g/dL (32.5-36.3); MEAN CORPUSCULAR VOLUME 86.3 fL (73.0-96.2); MONOCYTES # (AUTO) 0.5 K/uL (2.0-10.0); MONOCYTES % (AUTO) 5.7 % (0.0-11.0); NEUTROPHILS # (AUTO) 5.8 K/uL (1.8-8.9); NEUTROPHILS % (AUTO) 67.4 % (38.5-71.5); PLATELET COUNT (AUTO) 238 K/uL (152-348); RED BLOOD CELL COUNT(AUTO) 2.96 MIL/uL (4.06-5.63); WHITE BLOOD COUNT (AUTO) 8.6 K/uL (3.6-10.2)
[2017-07-12 08:24] LABS: BILIRUBIN,TOTAL 0.2 mg/dL (0.2-1.0); CREATININE 5.1 mg/dL (0.6-1.3); MAGNESIUM 1.6 mg/dL (1.8-2.4); PHOSPHOROUS 3.4 mg/dL (2.5-4.9); POTASSIUM 4.8 mmol/L (3.5-5.1); TOTAL PROTEIN, SERUM 6.5 g/dL (6.4-8.2)
[2017-07-12] MEDS: LACTOBACILLUS RHAMNOSUS GG 1 EACH CAPSULE PO SCH ×2 (08:35→20:32)
[2017-07-12] MEDS: AMLODIPINE 10 MG TABLET PO SCH (08:35)
[2017-07-12] MEDS: CARVEDILOL 12.5 MG TABLET PO SCH ×2 (08:35→17:49)
[2017-07-12] MEDS: CALCIUM ACETATE 667 MG CAPSULE PO SCH ×2 (08:35→17:51)
[2017-07-12] MEDS: CLOPIDOGREL 75 MG TABLET PO SCH (08:35)
[2017-07-12] MEDS: ISOSORBIDE MONONITRATE 30 MG TAB.SR.24H PO SCH (08:35)
[2017-07-12 10:45] VITALS: BP 142/89
[2017-07-12] MEDS: INSULIN REGULAR, HUMAN 300 UNIT/3 ML VIAL SQ PRN (12:08)
[2017-07-12] MEDS ORDERED: BENAZEPRIL HCL 20 MG TABLET PO SCH (14:00)
[2017-07-12] MEDS ORDERED: MAGNESIUM SULFATE/D5W 100 ML IV SCH (18:00)
[2017-07-12 20:31] VITALS: BP 128/78
[2017-07-12] MEDS: ATORVASTATIN 40 MG TABLET PO SCH (20:32)
[2017-07-12] MEDS: INSULIN DETEMIR 300 UNIT/3 ML CARTRIDGE SQ SCH (20:33)
[2017-07-12] MEDS: diphenhydrAMINE 25 MG CAP PO PRN (21:27)
[2017-07-13] MEDS: BLOOD SUGAR DIAGNOSTIC 1 EACH STRIP VI SCH ×4 (06:58→21:07)
[2017-07-13 08:18] LABS: BASOPHILS # (AUTO) 0.1 K/uL (0.0-8.0); BASOPHILS % (AUTO) 0.6 % (0.0-2.0); EOSINOPHILS % (AUTO) 10.4 % (0.0-7.0); HEMATOCRIT 23.7 % (36.7-47.1); HEMOGLOBIN 7.9 g/dL (12.5-16.3); LYMPHOCYTES # (AUTO) 2.1 K/uL (20.0-40.0); LYMPHOCYTES % (AUTO) 21.5 % (20.5-51.5); MEAN CORPUSCULAR HGB CONC 33 g/dL (32.5-36.3); MEAN CORPUSCULAR VOLUME 87.1 fL (73.0-96.2); MONOCYTES # (AUTO) 0.5 K/uL (2.0-10.0); MONOCYTES % (AUTO) 5.6 % (0.0-11.0); NEUTROPHILS # (AUTO) 6.1 K/uL (1.8-8.9); NEUTROPHILS % (AUTO) 61.9 % (38.5-71.5); PLATELET COUNT (AUTO) 239 K/uL (152-348); RED BLOOD CELL COUNT(AUTO) 2.72 MIL/uL (4.06-5.63); WHITE BLOOD COUNT (AUTO) 9.9 K/uL (3.6-10.2)
[2017-07-13] MEDS: ISOSORBIDE MONONITRATE 30 MG TAB.SR.24H PO SCH (08:39)
[2017-07-13] MEDS: CLOPIDOGREL 75 MG TABLET PO SCH (08:39)
[2017-07-13] MEDS: CALCIUM ACETATE 667 MG CAPSULE PO SCH ×2 (08:39→17:27)
[2017-07-13] MEDS: LACTOBACILLUS RHAMNOSUS GG 1 EACH CAPSULE PO SCH ×2 (08:39→21:05)
[2017-07-13] MEDS: CARVEDILOL 12.5 MG TABLET PO SCH ×2 (08:40→17:28)
[2017-07-13] MEDS: AMLODIPINE 10 MG TABLET PO SCH (08:40)
[2017-07-13 10:00] LABS: BILIRUBIN,TOTAL 0.2 mg/dL (0.2-1.0); CREATININE 5.2 mg/dL (0.6-1.3); MAGNESIUM 1.6 mg/dL (1.8-2.4); PHOSPHOROUS 3.9 mg/dL (2.5-4.9); TOTAL PROTEIN, SERUM 6.3 g/dL (6.4-8.2)
[2017-07-13 10:10] VITALS: BP 137/79
[2017-07-13 20:25] VITALS: BP 130/75
[2017-07-13] MEDS: INSULIN DETEMIR 300 UNIT/3 ML CARTRIDGE SQ SCH (21:00)
[2017-07-13] MEDS: ATORVASTATIN 40 MG TABLET PO SCH (21:05)
[2017-07-14] MEDS: LORAZEPAM 1 MG TABLET PO PRN ×2 (01:44→21:32)
[2017-07-14] MEDS: BLOOD SUGAR DIAGNOSTIC 1 EACH STRIP VI SCH ×4 (06:32→20:49)
[2017-07-14 07:00] VITALS: BP 152/94
[2017-07-14 07:37] LABS: BASOPHILS % (AUTO) 0.5 % (0.0-2.0); EOSINOPHILS # (AUTO) 0.9 K/uL (0.0-0.7); EOSINOPHILS % (AUTO) 10.1 % (0.0-7.0); HEMATOCRIT 24.4 % (36.7-47.1); HEMOGLOBIN 8.2 g/dL (12.5-16.3); LYMPHOCYTES # (AUTO) 2.1 K/uL (20.0-40.0); LYMPHOCYTES % (AUTO) 22.7 % (20.5-51.5); MEAN CORPUSCULAR HEMOGLOBIN 29.1 uug (23.8-33.4); MEAN CORPUSCULAR HGB CONC 33 g/dL (32.5-36.3); MONOCYTES # (AUTO) 0.5 K/uL (2.0-10.0); MONOCYTES % (AUTO) 5.8 % (0.0-11.0); NEUTROPHILS # (AUTO) 5.5 K/uL (1.8-8.9); NEUTROPHILS % (AUTO) 60.9 % (38.5-71.5); PLATELET COUNT (AUTO) 251 K/uL (152-348); RED BLOOD CELL COUNT(AUTO) 2.81 MIL/uL (4.06-5.63); WHITE BLOOD COUNT (AUTO) 9.1 K/uL (3.6-10.2)
[2017-07-14 07:56] LABS: BILIRUBIN,TOTAL 0.3 mg/dL (0.2-1.0); CREATININE 5.1 mg/dL (0.6-1.3); MAGNESIUM 1.6 mg/dL (1.8-2.4); POTASSIUM 4.9 mmol/L (3.5-5.1); TOTAL PROTEIN, SERUM 6.5 g/dL (6.4-8.2)
[2017-07-14] MEDS: ISOSORBIDE MONONITRATE 30 MG TAB.SR.24H PO SCH (08:36)
[2017-07-14] MEDS: LACTOBACILLUS RHAMNOSUS GG 1 EACH CAPSULE PO SCH ×2 (08:36→20:43)
[2017-07-14] MEDS: CALCIUM ACETATE 667 MG CAPSULE PO SCH ×2 (08:36→17:04)
[2017-07-14] MEDS: CARVEDILOL 12.5 MG TABLET PO SCH ×2 (08:37→17:05)
[2017-07-14] MEDS: AMLODIPINE 10 MG TABLET PO SCH (08:37)
[2017-07-14] MEDS: CLOPIDOGREL 75 MG TABLET PO SCH (08:41)
[2017-07-14] MEDS: INSULIN REGULAR, HUMAN 300 UNIT/3 ML VIAL SQ PRN ×3 (12:34→20:51)
[2017-07-14] MEDS: diphenhydrAMINE 25 MG CAP PO PRN (20:43)
[2017-07-14] MEDS: ATORVASTATIN 40 MG TABLET PO SCH (20:43)
[2017-07-14 20:48] VITALS: BP 131/72
[2017-07-14] MEDS: INSULIN DETEMIR 300 UNIT/3 ML CARTRIDGE SQ SCH (20:50)
[2017-07-15] MEDS: BLOOD SUGAR DIAGNOSTIC 1 EACH STRIP VI SCH ×4 (06:43→20:31)
[2017-07-15 07:00] VITALS: BP 145/84
[2017-07-15] MEDS: AMLODIPINE 10 MG TABLET PO SCH (08:57)
[2017-07-15] MEDS: CALCIUM ACETATE 667 MG CAPSULE PO SCH ×2 (08:57→18:17)
[2017-07-15] MEDS: CLOPIDOGREL 75 MG TABLET PO SCH (08:57)
[2017-07-15] MEDS: ISOSORBIDE MONONITRATE 30 MG TAB.SR.24H PO SCH (08:57)
[2017-07-15] MEDS: LACTOBACILLUS RHAMNOSUS GG 1 EACH CAPSULE PO SCH ×2 (08:57→20:26)
[2017-07-15] MEDS: CARVEDILOL 12.5 MG TABLET PO SCH ×2 (08:57→18:17)
[2017-07-15] MEDS: INSULIN REGULAR, HUMAN 300 UNIT/3 ML VIAL SQ PRN ×3 (12:05→20:31)
[2017-07-15] MEDS ORDERED: INFLUENZA VACCINE 2017-2018 0.5 ML DISP.SYRIN IM ONE (13:15)
[2017-07-15] MEDS: LORAZEPAM 1 MG TABLET PO PRN (16:45)
[2017-07-15 20:00] VITALS: BP 140/69
[2017-07-15] MEDS: ATORVASTATIN 40 MG TABLET PO SCH (20:26)
[2017-07-15] MEDS: diphenhydrAMINE 25 MG CAP PO PRN (20:26)
[2017-07-15] MEDS: INSULIN DETEMIR 300 UNIT/3 ML CARTRIDGE SQ SCH (20:30)
[2017-07-16 04:00] VITALS: BP 146/73
[2017-07-16] MEDS: BLOOD SUGAR DIAGNOSTIC 1 EACH STRIP VI SCH ×2 (06:26→12:19)
[2017-07-16 08:01] VITALS: BP 147/84
[2017-07-16] MEDS: CLOPIDOGREL 75 MG TABLET PO SCH (08:21)
[2017-07-16] MEDS: CALCIUM ACETATE 667 MG CAPSULE PO SCH (08:21)
[2017-07-16] MEDS: LACTOBACILLUS RHAMNOSUS GG 1 EACH CAPSULE PO SCH (08:22)
[2017-07-16] MEDS: CARVEDILOL 12.5 MG TABLET PO SCH (08:22)
[2017-07-16] MEDS: AMLODIPINE 10 MG TABLET PO SCH (08:23)
[2017-07-16 08:24] VITALS: BP 147/84
[2017-07-16] MEDS: ISOSORBIDE MONONITRATE 30 MG TAB.SR.24H PO SCH (08:24)
[2017-07-16] MEDS: INSULIN REGULAR, HUMAN 300 UNIT/3 ML VIAL SQ PRN (12:22)
== END 2017-07-16 15:30 | DRG 682 ==
LOC: ER 20:14 → SA1 22:00 → MEDSURG1 07-10 03:52
PROVIDERS: ADMIT Internal Medicine Nephrology; ATTEND Internal Medicine
DX: N17.0 Acute kidney failure with tubular necrosis (principal); G93.40 Encephalopathy, unspecified; I50.31 Acute diastolic (congestive) heart failure; I13.0 Hypertensive heart and chronic kidney disease with heart failure and stage 1 through stage 4 chronic kidney disease, or unspecified chronic kidney disease; E86.0 Dehydration; E11.22 Type 2 diabetes mellitus with diabetic chronic kidney disease; E11.319 Type 2 diabetes mellitus with unspecified diabetic retinopathy without macular edema; N18.3 Chronic kidney disease, stage 3 (moderate); Z79.4 Long term (current) use of insulin; H54.8 Legal blindness, as defined in USA; Z79.02 Long term (current) use of antithrombotics/antiplatelets; Z79.899 Other long term (current) drug therapy; D63.8 Anemia in other chronic diseases classified elsewhere; I25.10 Atherosclerotic heart disease of native coronary artery without angina pectoris; F03.90 Unspecified dementia, unspecified severity, without behavioral disturbance, psychotic disturbance, mood disturbance, and anxiety; I25.2 Old myocardial infarction; E78.5 Hyperlipidemia, unspecified
CPT/HCPCS: 36415; 70030-TC; 71045; 76770; 83605; 83735; 84100; 84156; 84300; 85025; 85730; 87040; 87046; 87400; 90686; 92610; 93005; 97116; 97530; A4663; J1200; J1630; J1815; J2060; J2405; J3475; J7030; J7050; Q0163